=== PATIENT | female | born 1980 | race Caucasian/White ===

== ENCOUNTER 2020-07-16 08:15 | Emergency (ER) | payer OTHER ==
--- NOTE | 2020-07-16 08:34 | ED Physician Documentation ---
PD HPI LOWER EXT INJURY - Stated complaint Stated Complaint: ANKLE INJURY - Chief complaint Chief Complaint: Ext Problem - History obtained from History obtained from: Patient, Friend, EMS - History of Present Illness PD HPI LOW EXT INJURY LOCATION: Right, Ankle Type of injury: Twist Where injury occurred: Work Timing - onset: Today Timing - duration: Minutes Timing - details: Abrupt onset, Still present Improved by: Rest, Immobilization Worsened by: Moving, Palpating Associated symptoms: Swelling. 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 She has an anterior abrasion and indicates her force was on the dorsal surface of the foot and plantar flexed the foot excessively. Cannot bear weight BIBA Review of Systems Constitutional: denies: Fever Nose: reports: Rhinorrhea / runny nose, Congestion (resolved) Respiratory: denies: Cough GI: denies: Vomiting PD PAST MEDICAL HISTORY - Past Medical History GI: Other - Past Surgical History General: Appendectomy - Present Medications Home Medications: Ambulatory Orders Medication Instructions Recorded Confirmed Hydrocodone/Acetaminophen 1 - 2 each PO Q6H PRN #14 tablet 07/16/20 [Hydrocodone-Acetamin 5-325 mg] - Allergies Allergies/Adverse Reactions: Allergies Allergy/AdvReac Type Severity Reaction Status Date / Time No Known Drug Allergies Allergy Verified 07/16/20 08:22 - Social History Does the pt smoke?: No Smoking Status: Never smoker Does the pt drink ETOH?: No Does the pt have substance abuse?: No - Immunizations Immunizations are current?: Yes PD ED PE NORMAL - Vitals Vital signs reviewed: Yes (hypertensive ) - General General: Alert and oriented X 3, No acute distress, Well developed/nourished - HEENT HEENT: Atraumatic, PERRL, EOMI - Neck Neck: Supple, no meningeal sign - Respiratory Respiratory: No respiratory distress - Derm Derm: Normal color, Warm and dry, No rash - Extremities Extremities: Other (swelling and tenderness over the talofibular ligament reduced ROM secondary to pain and pain over the dorsal ankle medially as well. No pain over proximal 5th. 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, No motor deficit, No sensory deficit, Normal speech Eye Opening: Spontaneous Motor: Obeys Commands Verbal: Oriented GCS Score: 15 - Psych Psych: Normal mood, Normal affect Results - Vitals Vitals: Vital Signs - 24 hr 07/16/20 07/16/20 08:18 08:25 Temperature 37.2 C Heart Rate 79 78 Respiratory 17 18 Rate Blood Pressure 144/77 H 119/73 O2 Saturation 100 100 Oxygen O2 Source Room air - Rads (name of study) ankle Radiology: Prelim report reviewed (Impression: Lateral malleolar soft tissue edema and curvilinear distal fibular calcification suggestive of a avulsion injury.), EMP read indepedently, See rad report PD MEDICAL DECISION MAKING - ED course Complexity details: reviewed results, re-evaluated patient, considered differential, d/w patient ED course: 39 y/o f w ankle sprain is placed into an air cast Departure - Departure Disposition: 01 Home, Self Care Clinical Impression: Ankle sprain Qualifiers: Encounter type: initial encounter Involved ligament of ankle: anterior talofibular ligament Laterality: right Qualified Code(s): S93.491A - Sprain of other ligament of right ankle, initial encounter Condition: Stable Instructions: ED Sprain Ankle W X Ray Follow-Up: Your, doctor [Other] Prescriptions: Hydrocodone/Acetaminophen [Hydrocodone-Acetamin 5-325 mg] 1 - 2 each PO Q6H PRN #14 tablet PRN Reason: Pain Forms: Activity restrictions
--- NOTE | 2020-07-16 09:04 | XRAY Report ---
PROCEDURE: Ankle 3 View RT INDICATIONS: twisted lateral swelling tenderness TECHNIQUE: 3 views of the ankle were acquired. COMPARISON: None FINDINGS: Bones: Small areas of curvilinear calcification are noted distal to the fibula. Ankle mortise is norm ally aligned. No suspicious bony lesions. Corticated calcification is noted distal to the medial ma lleolus without associated soft tissue edema and suspected to be related to old trauma. Soft tissues: Right lateral malleolus soft tissue edema. Achilles tendon appears normal. IMPRESSION: Lateral malleolar soft tissue edema and curvilinear distal fibular calcification suggest carlos alberto of avulsion injury. Reviewed by: Nicole Arenas MD on 07/16/2020 9:03 AM PDT Approved by: Nicole Arenas MD on 07/16/2020 9:03 AM PDT Station ID: [id number]
[2020-07-16 09:24] VITALS: BP 123/75
== END 2020-07-16 09:47 | disposition home or self-care (01) ==
LOC: ED 08:15
DX: S93.491A Sprain of other ligament of right ankle, initial encounter (principal); S90.511A Abrasion, right ankle, initial encounter; X50.1XXA Overexertion from prolonged static or awkward postures, initial encounter; Y93.89 Activity, other specified; Y92.89 Other specified places as the place of occurrence of the external cause; Y99.0 Civilian activity done for income or pay
CPT/HCPCS: 1040M; 99283; 99284